=== PATIENT | male | born 1970 | race African-American/Black ===

== ENCOUNTER 2019-03-30 13:47 | Inpatient (IN) | payer OTHER ==
[2019-03-30 17:01] VITALS: BMI 22.1
--- NOTE | 2019-03-30 20:04 | HP ---
CIWA Score Nausea/Vomitin-No Nausea/No Vomiting Muscle Tremors: 2 Anxiety: 2 Agitation: 0-Normal Activity Paroxysmal Sweats: 2 Orientation: 1-Uncertain about Date Tacttile Disturbances: 2-Mild Itch/Numbness/Burn Auditory Disturbances: 0-None Visual Disturbances: 0-None Headache: 3-Moderate CIWA-Ar Total Score: 12 - Admission Criteria OASAS Guidelines: Admission for Medically Managed Detox: Requires at least one of the followin. CIWA greater than 12 2. Seizures within the past 24 hours 3. Delirium tremens within the past 24 hours 4. Hallucinations within the past 24 hours 5. Acute intervention needed for co occurring medical disorder 6. Acute intervention needed for co occurring psychiatric disorder 7. Severe withdrawal that cannot be handled at a lower level of care (continued vomiting, continued diarrhea, abnormal vital signs) requiring intravenous medication and/or fluids 8. Patient presents the following: CIWA greater than 12 Admission Criteria Met: Admission criteria met Admission ROS S - [facility] Chief Complaint: alcohol withdrawal symptoms Allergies/Adverse Reactions: Allergies Allergy/AdvReac Type Severity Reaction Status Date / Time No Known Allergies Allergy Verified 03/30/19 16:51 History of Present Illness: Patient is a 48 yo male with hx of alcohol dependence is here seeking inpatient detox d/t JORGE, reports no significant period of sobriety. Last detox January 2019 at [facility] Denies hx of seizures Reports hx ETOH blackouts with last episode last October PMHX: carpal tunnel (R), neuropathy Psych: Depression (no treatment at this time) Denies SI/HI or hx of suicide attempt Exam Limitations: No Limitations - Ebola screening Have you traveled outside of the country in the last 21 days: No (N) Have you had contact with anyone from an Ebola affected area: No Do you have a fever: No - Review of Systems Constitutional: Chills, Diaphoresis, Loss of Appetite, Unintentional Wgt. Loss EENT: reports: Other (chronic neck pain) Respiratory: reports: No Symptoms reported Cardiac: reports: No Symptoms Reported GI: reports: Nausea, Poor Appetite : reports: No Symptoms Reported Musculoskeletal: reports: No Symptoms Reported Integumentary: reports: No Symptoms Reported Neuro: reports: Headache, Numbness (right hand), Other (muscle spasms right upper extremity) Endocrine: reports: Increased Thirst Hematology: reports: No Symptoms Reported Psychiatric: reports: Orientated x3, Depressed Other Systems: Reviewed and Negative Patient History - Patient Medical History Hx Anemia: No Hx Asthma: No Hx Chronic Obstructive Pulmonary Disease (COPD): No Hx Cancer: No Hx Cardiac Disorders: No Hx Congestive Heart Failure: No Hx Hypertension: No Hx Hypercholesterolemia: No Hx Pacemaker: No HX Cerebrovascular Accident: No Hx Seizures: No Hx Dementia: No Hx Diabetes: No Hx Gastrointestinal Disorders: No Hx Liver Disease: No Hx Genitourinary Disorders: No Hx Sexually Transmitted Disorders: No Hx Renal Disease (ESRD): No Hx Thyroid Disease: No Hx Human Immunodeficiency Virus (HIV): No Hx Hepatitis C: No Hx Depression: Yes Hx Suicide Attempt: No Hx Bipolar Disorder: No Hx Schizophrenia: No - Patient Surgical History Past Surgical History: Yes Other Surgical History: inguinal bilateral hernia repair - PPD History Previous Implant?: No Documented Results: Negative w/o proof PPD to be Administered?: Yes - Smoking Cessation Smoking history: Current every day smoker Have you smoked in the past 12 months: Yes Aproximately how many cigarettes per day: 20 Hx Chewing Tobacco Use: No Initiated information on smoking cessation: Yes 'Breaking Loose' booklet given: 03/30/19 - Substance & Tx. History Hx Alcohol Use: Yes Hx Substance Use: Yes Substance Use Type: Alcohol Hx Substance Use Treatment: Yes (Last detox January 2019 at [facility] ) - Substances abused Alcohol Substance route: Oral Frequency: Daily Amount used: liquor-2 pints,beer- 2 x six packs Age of first use: 8 Date of last use: 03/30/19 Family Disease History - Family Disease History Other Family History: uncle: alcoholism Admission Physical Exam [facility] - Vital Signs Vital Signs: Vital Signs - 24 hr 03/30/19 16:51 Temperature 96.8 F L Pulse Rate 58 L Respiratory 18 Rate Blood Pressure 152/92 - Physical General Appearance: Yes: Appropriately Dressed, Mild Distress, Thin, Tremorous, Sweating HEENTM: Yes: EOMI, Hearing grossly Normal, Normal ENT Inspection, Normocephalic , Normal Voice, GASPER, Pharynx Normal, Tm's normal Respiratory: Yes: Chest Non-Tender, Lungs Clear, Normal Breath Sounds, No Respiratory Distress, No Accessory Muscle Use Neck: Yes: Within Normal Limits Breast: Yes: Breast Exam Deferred Cardiology: Yes: Regular Rhythm, Regular Rate Abdominal: Yes: Normal Bowel Sounds, Non Tender, Flat, Soft Genitourinary: Yes: Within Normal Limits Back: Yes: Normal Inspection Musculoskeletal: Yes: full range of Motion, Gait Steady, Pelvis Stable, Back pain Extremities: Yes: Normal Capillary Refill, Normal Inspection, Normal Range of Motion, Non-Tender Neurological: Yes: game engineer II-XII NML intact, Fully Oriented, Alert, Motor Strength 5/5, Normal Mood/Affect, Depressed Affect Integumentary: Yes: Normal Color, Warm, Diaphoresis Lymphatic: Yes: Within Normal Limits - Diagnostic (1) Alcohol dependence with uncomplicated withdrawal Current Visit: Yes Status: Acute (2) Neuropathy Current Visit: Yes Status: Chronic (3) Nicotine dependence Current Visit: Yes Status: Chronic Qualifiers: Nicotine product type: cigarettes (4) Carpal tunnel syndrome Current Visit: Yes Status: Acute Qualifiers: Laterality: right Qualified Code(s): G56.01 - Carpal tunnel syndrome, right upper limb Cleared for Admission [facility] - Detox or Rehab [facility] Level of Care: Medically Managed Detox Regimen/Protocol: Librium Breathalyzer - Breathalyzer Breathalyzer: 0 Urine Drug Screen - Test Device Lot number: [id number] Expiration date: 12/01/20 - Control Is test valid?: Yes - Results Drug screen NEGATIVE: Yes Inpatient Rehab Admission - Rehab Decision to Admit Inpatient rehab admission?: No
[2019-03-30] MEDS ORDERED: MAGNESIUM HYDROX 2400MG/30ML ORAL SUSPENSION 30 ML CUP PO PRN (20:15)
[2019-03-30] MEDS ORDERED: BACLOFEN 10 MG TABLET (FP) PO PRN (20:15)
[2019-03-30] MEDS ORDERED: ACETAMINOPHEN 325 MG TABLET (FP) PO PRN (20:15)
[2019-03-30] MEDS ORDERED: hydrOXYzine PAMOATE 25 MG CAPSULE (FP) PO PRN (20:15)
[2019-03-30] MEDS ORDERED: MAG HYDROX/AL HYDROX/SIMETH 30 ML UNIT-DOSE CUP PO PRN (20:15)
[2019-03-30] MEDS ORDERED: chlordiazePOXIDE HCL 25 MG CAPSULE PO PRN (20:15)
[2019-03-30] MEDS ORDERED: NICOTINE POLACRILEX 2 MG GUM BUC PRN (20:15)
[2019-03-30] MEDS ORDERED: MAGNESIUM CITRATE 300 ML BOTTLE PO PRN (20:15)
[2019-03-30] MEDS ORDERED: MENTHOL/PHENOL 1 EACH UD MM PRN (20:15)
[2019-03-30] MEDS ORDERED: BISMUTH SUBSALICYLATE 524 MG/30 ML UD PO PRN (20:15)
[2019-03-30] MEDS: THIAMINE HCL 100 MG TABLET (FP) PO SCH (21:47)
[2019-03-30] MEDS: GABAPENTIN 100 MG CAPSULE (FP) PO SCH (21:47)
[2019-03-30] MEDS: chlordiazePOXIDE HCL 25 MG CAPSULE PO SCH (22:33)
[2019-03-31] MEDS: chlordiazePOXIDE HCL 25 MG CAPSULE PO SCH ×4 (05:51→22:19)
[2019-03-31] MEDS: GABAPENTIN 100 MG CAPSULE (FP) PO SCH ×3 (05:51→22:19)
[2019-03-31 09:23] LABS: PH,URINE 6.5 (5.0-8.0); URINE APPEARANCE CLEAR; URINE BILIRUBIN NEGATIVE (NEGATIVE); URINE COLOR YELLOW; URINE GLUCOSE (UA) 1+ (NEGATIVE); URINE KETONE NEGATIVE (NEGATIVE); URINE LEUK ESTERASE NEGATIVE (NEGATIVE); URINE NITRITE NEGATIVE (NEGATIVE); URINE PROTEIN NEGATIVE (NEGATIVE)
[2019-03-31] MEDS: NICOTINE 14 MG/24 HOURS TOPICAL PATCH TD SCH (10:15)
[2019-03-31] MEDS: PRENATAL VITAMINS W/ FOLIC ACID TABLET (FP) PO SCH (10:16)
[2019-03-31 11:53] LABS: HEMATOCRIT 42.4 % (35.4-49); HEMOGLOBIN 14.4 GM/dL (11.7-16.9); MCH 33.1 pg (25.7-33.7); MCHC 33.9 g/dl (32.0-35.9); MEAN CELL VOLUME 97.6 fl (80-96); MEAN PLT VOLUME 8.3 fl (7.5-11.1); PLATELET COUNT 242 K/MM3 (134-434); RBC 4.34 M/mm3 (4.00-5.60)
[2019-03-31 12:23] LABS: ALBUMIN 3.7 g/dl (3.4-5.0); BILIRUBIN,TOTAL 0.4 mg/dL (0.2-1); BLOOD UREA NITROGEN 10.4 mg/dL (7-18); CALCIUM 9.4 mg/dL (8.5-10.1); CREATININE 0.9 mg/dL (0.55-1.3); POTASSIUM 3.6 mmol/L (3.5-5.1); TOT PROT 6.8 g/dl (6.4-8.2)
--- NOTE | 2019-03-31 12:49 | PN ---
S CIWA - CIWA Score Nausea/Vomitin Muscle Tremors: 2 Anxiety: 2 Agitation: 2 Paroxysmal Sweats: 1-Minimal Palms Moist Orientation: 0-Oriented Tacttile Disturbances: 1-Very Mild Itch/Numbness Auditory Disturbances: 1-Very Mild Visual Disturbances: 0-None Headache: 2-Mild CIWA-Ar Total Score: 13 BHS Progress Note (SOAP) Subjective: alert,irritable,anxious,interrupted sleep,tremor Objective: 03/31/19 12:47 Vital Signs Temperature 97.4 F L 03/31/19 09:27 Pulse Rate 80 03/31/19 09:27 Respiratory Rate 18 03/31/19 09:27 Blood Pressure 135/87 03/31/19 09:27 O2 Sat by Pulse Oximetry (%) Laboratory Last Values WBC 8.0 K/mm3 (4.0-10.0) 03/31/19 07:00 RBC 4.34 M/mm3 (4.00-5.60) 03/31/19 07:00 Hgb 14.4 GM/dL (11.7-16.9) 03/31/19 07:00 Hct 42.4 % (35.4-49) 03/31/19 07:00 MCV 97.6 fl (80-96) H 03/31/19 07:00 MCH 33.1 pg (25.7-33.7) 03/31/19 07:00 MCHC 33.9 g/dl (32.0-35.9) 03/31/19 07:00 RDW 15.0 % (11.9-15.9) 03/31/19 07:00 Plt Count 242 K/MM3 (134-434) 03/31/19 07:00 MPV 8.3 fl (7.5-11.1) 03/31/19 07:00 Sodium 140 mmol/L (136-145) 03/31/19 07:00 Potassium 3.6 mmol/L (3.5-5.1) 03/31/19 07:00 Chloride 105 mmol/L (98-107) 03/31/19 07:00 Carbon Dioxide 25 mmol/L (21-32) 03/31/19 07:00 Anion Gap 10 MMOL/L (8-16) 03/31/19 07:00 BUN 10.4 mg/dL (7-18) 03/31/19 07:00 Creatinine 0.9 mg/dL (0.55-1.3) 03/31/19 07:00 Est GFR (CKD-EPI)AfAm 116.65 03/31/19 07:00 Est GFR (CKD-EPI)NonAf 100.64 03/31/19 07:00 Random Glucose 94 mg/dL (74-106) 03/31/19 07:00 Calcium 9.4 mg/dL (8.5-10.1) 03/31/19 07:00 Total Bilirubin 0.4 mg/dL (0.2-1) 03/31/19 07:00 AST 27 U/L (15-37) 03/31/19 07:00 ALT 42 U/L (13-61) 03/31/19 07:00 Alkaline Phosphatase 117 U/L (45-117) 03/31/19 07:00 Total Protein 6.8 g/dl (6.4-8.2) 03/31/19 07:00 Albumin 3.7 g/dl (3.4-5.0) 03/31/19 07:00 Urine Color Yellow 03/30/19 09:28 Urine Appearance Clear 03/30/19 09:28 Urine pH 6.5 (5.0-8.0) 03/30/19 09:28 Ur Specific [place] 1.026 (1.010-1.035) 03/30/19 09:28 Urine Protein Negative (NEGATIVE) 03/30/19 09:28 Urine Glucose (UA) 1+ (NEGATIVE) H 03/30/19 09:28 Urine Ketones Negative (NEGATIVE) 03/30/19 09:28 Urine Blood Negative (NEGATIVE) 03/30/19 09:28 Urine Nitrite Negative (NEGATIVE) 03/30/19 09:28 Urine Bilirubin Negative (NEGATIVE) 03/30/19 09:28 Urine Urobilinogen 1.0 mg/dL (0.2-1.0) 03/30/19 09:28 Ur Leukocyte Esterase Negative (NEGATIVE) 03/30/19 09:28 03/31/19 12:47 rpr pending Assessment: 03/31/19 12:48 withdrawal symptom Plan: continue detox
--- NOTE | 2019-03-31 15:26 | CONSULT ---
[facility] Psychiatric Consult - Data Date of interview: 03/31/19 Admission source: [facility] Identifying data: First admission to [facility] for this 48 y/o [place]born male self-referred for detoxification (alcohol). Examined at [address] [place] [address]. Patient is single, a father of one, domiciled and currently employed. Substance Abuse History: Discussed in this sesssion. Extensive history of alcohol abuse since age 8. Details in current [facility] report as follows : Smoking history: Current every day smoker. Have you smoked in the past 12 months: Yes. Aproximately how many cigarettes per day: 20. Hx Chewing Tobacco Use: No. Initiated information on smoking cessation: Yes. 'Breaking Loose' booklet given : 03/30/19. - Substance & Tx. History. Hx Alcohol Use: Yes. Hx Substance Use : Yes. Substance Use Type: Alcohol. Hx Substance Use Treatment: Yes (Last detox January 2019 at [facility] ). - Substances abused. Alcohol. Substance route: Oral. Frequency: Daily. Amount used: liquor-2 pints,beer- 2 x six packs. Age of first use: 8. Date of last use: 03/30/19 Medical History: Remarkable for carpal tunnel syndrome, peripheral neuropathy and a history of bilateral inguinal herniorraphy. Psychiatric History: Patient denies history of psychiatric hospitalizations, OPD care or suicide attempts. Physical/Sexual Abuse/Trauma History: Patient denies. Additional Comment: Drug screen is negative. Mental Status Exam - Mental Status Exam Alert and Oriented to: Time, Place, Person Cognitive Function: Good Patient Appearance: Well Groomed Mood: Nervous, Withdrawn, Anxious Affect: Mood Congruent, Constricted Patient Behavior: Fatigued, Appropriate, Cooperative Speech Pattern: Clear, Appropriate Voice Loudness: Normal Thought Process: Intact, Goal Oriented Thought Disorder: Not Present Hallucinations: Denies Suicidal Ideation: Denies Homicidal Ideation: Denies Insight/Judgement: Poor Sleep: Well Appetite: Good Muscle strength/Tone: Normal Gait/Station: Normal Psychiatric Findings - Problem List ([place] 1, 2,3) (1) Alcohol dependence with uncomplicated withdrawal Current Visit: Yes Status: Acute (2) Nicotine dependence Current Visit: Yes Status: Chronic Qualifiers: Nicotine product type: cigarettes - Initial Treatment Plan Initial Treatment Plan: Examined, with his permission, in the presence of medical students. Psychoeducation. Sleep hygiene. Detoxification. Support. Groups. Motivational counseling provided in session. Relapse prevention (MAT) : discussed with patient. AA meetings. Observation.
[2019-03-31] MEDS: THIAMINE HCL 100 MG TABLET (FP) PO SCH (22:19)
[2019-03-31] MEDS: MELATONIN 5 MG TABLETS PO PRN (22:19)
[2019-04-01] MEDS: GABAPENTIN 100 MG CAPSULE (FP) PO SCH ×3 (05:47→22:33)
[2019-04-01] MEDS: chlordiazePOXIDE HCL 25 MG CAPSULE PO SCH ×3 (05:47→17:59)
[2019-04-01] MEDS: IBUPROFEN 400 MG TABLET (FP) PO PRN ×2 (05:49→22:34)
[2019-04-01] MEDS: NICOTINE 14 MG/24 HOURS TOPICAL PATCH TD SCH (10:13)
[2019-04-01] MEDS: PRENATAL VITAMINS W/ FOLIC ACID TABLET (FP) PO SCH (10:14)
--- NOTE | 2019-04-01 14:48 | PN ---
[facility] CIWA - CIWA Score Nausea/Vomitin-No Nausea/No Vomiting Muscle Tremors: 3 Anxiety: 3 Agitation: 2 Paroxysmal Sweats: 2 Orientation: 2-Disoriented Date<2 days Tacttile Disturbances: 0-None Auditory Disturbances: 2-Mild Harshness/Frighten Visual Disturbances: 1-Very Mild Sensitivity Headache: 0-None Present CIWA-Ar Total Score: 15 S Progress Note (SOAP) Subjective: Sweating, Tremors, Anxious. Objective: PATIENT A & O X 2 (UNCERTAIN ABOUT CURRENT DAY / DATE). PATIENT OBSERVED AMBULATING ON UNIT UNASSISTED. IN NO ACUTE DISTRESS. 04/01/19 14:51 Vital Signs Temperature 99.6 F 04/01/19 13:30 Pulse Rate 58 L 04/01/19 13:30 Respiratory Rate 18 04/01/19 13:30 Blood Pressure 136/84 04/01/19 13:30 O2 Sat by Pulse Oximetry (%) Laboratory Last Values WBC 8.0 K/mm3 (4.0-10.0) 03/31/19 07:00 RBC 4.34 M/mm3 (4.00-5.60) 03/31/19 07:00 Hgb 14.4 GM/dL (11.7-16.9) 03/31/19 07:00 Hct 42.4 % (35.4-49) 03/31/19 07:00 MCV 97.6 fl (80-96) H 03/31/19 07:00 MCH 33.1 pg (25.7-33.7) 03/31/19 07:00 MCHC 33.9 g/dl (32.0-35.9) 03/31/19 07:00 RDW 15.0 % (11.9-15.9) 03/31/19 07:00 Plt Count 242 K/MM3 (134-434) 03/31/19 07:00 MPV 8.3 fl (7.5-11.1) 03/31/19 07:00 Sodium 140 mmol/L (136-145) 03/31/19 07:00 Potassium 3.6 mmol/L (3.5-5.1) 03/31/19 07:00 Chloride 105 mmol/L (98-107) 03/31/19 07:00 Carbon Dioxide 25 mmol/L (21-32) 03/31/19 07:00 Anion Gap 10 MMOL/L (8-16) 03/31/19 07:00 BUN 10.4 mg/dL (7-18) 03/31/19 07:00 Creatinine 0.9 mg/dL (0.55-1.3) 03/31/19 07:00 Est GFR (CKD-EPI)AfAm 116.65 03/31/19 07:00 Est GFR (CKD-EPI)NonAf 100.64 03/31/19 07:00 Random Glucose 94 mg/dL (74-106) 03/31/19 07:00 Calcium 9.4 mg/dL (8.5-10.1) 03/31/19 07:00 Total Bilirubin 0.4 mg/dL (0.2-1) 03/31/19 07:00 AST 27 U/L (15-37) 03/31/19 07:00 ALT 42 U/L (13-61) 03/31/19 07:00 Alkaline Phosphatase 117 U/L (45-117) 03/31/19 07:00 Total Protein 6.8 g/dl (6.4-8.2) 03/31/19 07:00 Albumin 3.7 g/dl (3.4-5.0) 03/31/19 07:00 Urine Color Yellow 03/30/19 09:28 Urine Appearance Clear 03/30/19 09:28 Urine pH 6.5 (5.0-8.0) 03/30/19 09:28 Ur Specific [place] 1.026 (1.010-1.035) 03/30/19 09:28 Urine Protein Negative (NEGATIVE) 03/30/19 09:28 Urine Glucose (UA) 1+ (NEGATIVE) H 03/30/19 09:28 Urine Ketones Negative (NEGATIVE) 03/30/19 09:28 Urine Blood Negative (NEGATIVE) 03/30/19 09:28 Urine Nitrite Negative (NEGATIVE) 03/30/19 09:28 Urine Bilirubin Negative (NEGATIVE) 03/30/19 09:28 Urine Urobilinogen 1.0 mg/dL (0.2-1.0) 03/30/19 09:28 Ur Leukocyte Esterase Negative (NEGATIVE) 03/30/19 09:28 RPR Titer Nonreactive (NONREACTIVE) 03/31/19 07:00 LABS NOTED. Assessment: 04/01/19 14:52 WITHDRAWAL SYMPTOMS. Plan: CONTINUE DETOX.
[2019-04-01] MEDS: MELATONIN 5 MG TABLETS PO PRN (22:33)
[2019-04-01] MEDS: chlordiazePOXIDE HCL 10 MG CAPSULE PO SCH (22:33)
[2019-04-01] MEDS: THIAMINE HCL 100 MG TABLET (FP) PO SCH (22:33)
[2019-04-01] MEDS ORDERED: chlordiazePOXIDE HCL 10 MG CAPSULE PO PRN (23:00)
[2019-04-02] MEDS: IBUPROFEN 400 MG TABLET (FP) PO PRN (05:45)
[2019-04-02] MEDS: chlordiazePOXIDE HCL 10 MG CAPSULE PO SCH ×4 (05:45→22:18)
[2019-04-02] MEDS: GABAPENTIN 100 MG CAPSULE (FP) PO SCH ×3 (06:22→22:18)
[2019-04-02] MEDS: NICOTINE 14 MG/24 HOURS TOPICAL PATCH TD SCH (10:09)
[2019-04-02] MEDS: PRENATAL VITAMINS W/ FOLIC ACID TABLET (FP) PO SCH (10:10)
--- NOTE | 2019-04-02 12:01 | PN ---
S CIWA - CIWA Score Nausea/Vomitin-No Nausea/No Vomiting Muscle Tremors: 3 Anxiety: 4-Mod. Anxious/Guarded Agitation: 3 Paroxysmal Sweats: 1-Minimal Palms Moist Orientation: 0-Oriented Tacttile Disturbances: 0-None Auditory Disturbances: 0-None Visual Disturbances: 0-None Headache: 0-None Present CIWA-Ar Total Score: 11 BHS Progress Note (SOAP) Subjective: Pt c/o slight tremors, anxiety, fatigue. Objective: 04/02/19 11:57 Vital Signs - 24 hr 04/01/19 04/01/19 04/01/19 13:30 18:08 23:09 Temperature 99.6 F 98.9 F 98.3 F Pulse Rate 58 L 88 89 Respiratory 18 18 18 Rate Blood Pressure 136/84 124/79 123/88 04/02/19 04/02/19 04/02/19 00:30 03:30 06:17 Temperature 97.3 F L Pulse Rate 93 H Respiratory 18 18 18 Rate Blood Pressure 127/85 04/02/19 09:40 Temperature 97.6 F Pulse Rate 85 Respiratory 18 Rate Blood Pressure 116/71 Laboratory Tests 03/30/19 03/31/19 03/31/19 09:28 07:00 07:00 WBC 8.0 RBC 4.34 Hgb 14.4 Hct 42.4 MCV 97.6 H MCH 33.1 MCHC 33.9 RDW 15.0 Plt Count 242 MPV 8.3 Sodium 140 Potassium 3.6 Chloride 105 Carbon Dioxide 25 Anion Gap 10 BUN 10.4 Creatinine 0.9 Est GFR (CKD-EPI)AfAm 116.65 Est GFR (CKD-EPI)NonAf 100.64 Random Glucose 94 Calcium 9.4 Total Bilirubin 0.4 AST 27 ALT 42 Alkaline Phosphatase 117 Total Protein 6.8 Albumin 3.7 Urine Color Yellow Urine Appearance Clear Urine pH 6.5 Ur Specific [place] 1.026 Urine Protein Negative Urine Glucose (UA) 1+ H Urine Ketones Negative Urine Blood Negative Urine Nitrite Negative Urine Bilirubin Negative Urine Urobilinogen 1.0 Ur Leukocyte Esterase Negative RPR Titer 03/31/19 07:00 WBC RBC Hgb Hct MCV MCH MCHC RDW Plt Count MPV Sodium Potassium Chloride Carbon Dioxide Anion Gap BUN Creatinine Est GFR (CKD-EPI)AfAm Est GFR (CKD-EPI)NonAf Random Glucose Calcium Total Bilirubin AST ALT Alkaline Phosphatase Total Protein Albumin Urine Color Urine Appearance Urine pH Ur Specific [place] Urine Protein Urine Glucose (UA) Urine Ketones Urine Blood Urine Nitrite Urine Bilirubin Urine Urobilinogen Ur Leukocyte Esterase RPR Titer Nonreactive Assessment: 04/02/19 11:58 withdrawal sx Plan: continue detox increase po fluids.
[2019-04-02] MEDS: ACETAMINOPHEN 325 MG TABLET (FP) PO PRN ×2 (15:51→22:19)
[2019-04-02] MEDS: THIAMINE HCL 100 MG TABLET (FP) PO SCH (22:18)
[2019-04-02] MEDS: MELATONIN 5 MG TABLETS PO PRN (22:19)
--- NOTE | 2019-04-03 00:10 | EKG ---
Test Reason : Blood Pressure : / mmHG Vent. Rate : 053 BPM Atrial Rate : 053 BPM P-R Int : 132 ms QRS Dur : 082 ms QT Int : 450 ms P-R-T Axes : 061 062 069 degrees QTc Int : 422 ms SINUS BRADYCARDIA WITH OCCASIONAL PREMATURE VENTRICULAR COMPLEXES POSSIBLE LEFT ATRIAL ENLARGEMENT BORDERLINE ECG NO PREVIOUS ECGS AVAILABLE Confirmed by MD Botello Edward ([id number]) on 04/03/2019 12:10:09 AM Referred By: Confirmed By:Carlos Botello MD
[2019-04-03] MEDS: GABAPENTIN 100 MG CAPSULE (FP) PO SCH (05:40)
[2019-04-03 09:05] VITALS: BP 140/93; PULSE 91; TEMP 97.6
[2019-04-03] MEDS: PRENATAL VITAMINS W/ FOLIC ACID TABLET (FP) PO SCH (10:16)
[2019-04-03] MEDS: NICOTINE 14 MG/24 HOURS TOPICAL PATCH TD SCH (10:16)
[2019-04-03] MEDS: chlordiazePOXIDE HCL 10 MG CAPSULE PO SCH (12:03)
--- NOTE | 2019-04-03 17:32 | DS ---
[facility] Detox Discharge Summary Admission Date: 03/30/19 Discharge Date: 04/03/19 - History Present History: Alcohol Dependence Additional Comments: PATIENT GOING TO [facility] ([place], [place]) FOR AFTERCARE. PATIENT WAS DISCHARGED FROM DETOX UNIT IN STABLE MEDICAL CONDITION. Pertinent Past History: History Of Blackouts, History Of Neuropathy, History Of Carpal Tunnel Syndrome, History Of Depression, Nicotine Dependence. - Physical Exam Results Vital Signs: Vital Signs Temperature 97.6 F 04/03/19 09:05 Pulse Rate 91 H 04/03/19 09:05 Respiratory Rate 18 04/03/19 09:05 Blood Pressure 140/93 04/03/19 09:05 O2 Sat by Pulse Oximetry (%) Pertinent Admission Physical Exam Findings: WITHDRAWAL SYMPTOMS. Laboratory Tests 03/30/19 03/31/19 03/31/19 09:28 07:00 07:00 WBC 8.0 RBC 4.34 Hgb 14.4 Hct 42.4 MCV 97.6 H MCH 33.1 MCHC 33.9 RDW 15.0 Plt Count 242 MPV 8.3 Sodium 140 Potassium 3.6 Chloride 105 Carbon Dioxide 25 Anion Gap 10 BUN 10.4 Creatinine 0.9 Est GFR (CKD-EPI)AfAm 116.65 Est GFR (CKD-EPI)NonAf 100.64 Random Glucose 94 Calcium 9.4 Total Bilirubin 0.4 AST 27 ALT 42 Alkaline Phosphatase 117 Total Protein 6.8 Albumin 3.7 Urine Color Yellow Urine Appearance Clear Urine pH 6.5 Ur Specific [place] 1.026 Urine Protein Negative Urine Glucose (UA) 1+ H Urine Ketones Negative Urine Blood Negative Urine Nitrite Negative Urine Bilirubin Negative Urine Urobilinogen 1.0 Ur Leukocyte Esterase Negative RPR Titer 03/31/19 07:00 WBC RBC Hgb Hct MCV MCH MCHC RDW Plt Count MPV Sodium Potassium Chloride Carbon Dioxide Anion Gap BUN Creatinine Est GFR (CKD-EPI)AfAm Est GFR (CKD-EPI)NonAf Random Glucose Calcium Total Bilirubin AST ALT Alkaline Phosphatase Total Protein Albumin Urine Color Urine Appearance Urine pH Ur Specific [place] Urine Protein Urine Glucose (UA) Urine Ketones Urine Blood Urine Nitrite Urine Bilirubin Urine Urobilinogen Ur Leukocyte Esterase RPR Titer Nonreactive LABS NOTED. - Treatment Hospital Course: Detox Protocol Followed, Detoxed Safely, Responded well, Discharged Condition Good, Rehab Referral Accepted Patient has Accepted a Rehab Referral to: [facility] ([place], [place]). - Medication Discharge Medications: Ambulatory Orders Gabapentin [Neurontin -] 100 mg PO TID 03/30/19 - Diagnosis (1) Alcohol dependence with uncomplicated withdrawal Status: Acute (2) Carpal tunnel syndrome Status: Acute Qualifiers: Laterality: right Qualified Code(s): G56.01 - Carpal tunnel syndrome, right upper limb (3) Neuropathy Status: Chronic (4) Nicotine dependence Status: Chronic Qualifiers: Nicotine product type: cigarettes Substance use status: uncomplicated Qualified Code(s): F17.210 - Nicotine dependence, cigarettes, uncomplicated - AMA Did Patient Leave Against Medical Advice: No
== END 2019-04-03 11:40 | disposition home or self-care (01) | DRG 897 ==
LOC: YASAS 13:47 → Y3N 20:27
PROVIDERS: ADMIT Surgery; ATTEND Surgery
PROC: HZ2ZZZZ Detoxification Services for Substance Abuse Treatment (ICD-10-PCS; principal; 2019-03-30)
DX: F10.230 Alcohol dependence with withdrawal, uncomplicated (principal); F17.210 Nicotine dependence, cigarettes, uncomplicated; G62.9 Polyneuropathy, unspecified; G56.01 Carpal tunnel syndrome, right upper limb
CPT/HCPCS: 36415; 80053; 81003; 85027; 86593; 93005; 93010; J0475